=== PATIENT | male | born 1990 | race Caucasian/White ===

== ENCOUNTER 2024-05-31 14:32 | Emergency (ER) | payer SELFPAY ==
[2024-05-31] VITALS (9 sets, daily range): BP systolic 117–145; BP diastolic 66–94; BMI 21.8
[2024-05-31 15:04] LABS: % Basophils 0.5 % (0-2); % Eosinophils 0.3 % (0-6); % Immature Granulocytes 0.1 % (0-0.5); % Lymphocytes 22.5 % (20.5-51.1); % Neutrophils 71.6 % (42.2-75.2); Absolute Lymphocytes 1.7 10^3/uL (1.2-3.4); Absolute Monocytes 0.4 10^3/uL (0.1-0.6); Absolute Neutrophils 5.5 10^3/uL (1.4-6.5); Hematocrit 37.9 % (39.0-52.0); Hemoglobin 13.9 g/dL (13.0-18.0); Mean Corp Hgb Conc. 36.7 g/dL (33.0-37.0); Mean Corpuscular Hgb 30.6 pg (27.0-31.0); Mean Corpuscular Volume 83.5 fL (80.0-94.0); Nucleated Red Blood Cells % 0 % (-); Platelet Count 293 10^3/uL (130-400); Red Blood Cell Count 4.54 10^6/uL (4.70-6.10); Red Cell Dist. Width 11.6 % (11.5-14.5); White Blood Cell Count 7.6 10^3/uL (4.8-10.8)
[2024-05-31 15:18] LABS: ALT (SGPT) 54 U/L (0-50); AST (SGOT) 46 U/L (17-59); Albumin 5.1 g/dl (3.5-5.0); Alkaline Phosphatase 69 U/L (38-126); Blood Urea Nitrogen 14 mg/dl (9-20); Calcium 10.1 mg/dl (8.4-10.2); Carbon Dioxide 28 mmol/L (22-30); Chloride 100 mmol/L (98-107); Estimated Creatinine Clearance > 125 ml/min; Glucose 90 mg/dl (70-99); Potassium 3.9 mmol/L (3.5-5.1); Sodium 139 mmol/L (135-145); Total Bilirubin 0.9 mg/dl (0.2-1.3); Total Protein 7.6 g/dl (6.3-8.2); eGFR > 60.00
--- NOTE | 2024-05-31 16:03 | ED.GENMED ---
History of Present Illness
General
Chief Complaint: Headache
Source: patient and spouse
Exam Limitations: none
Time Seen by Provider: 05/31/24 15:05
Nursing documentation reviewed up to this point in time: agreed with
History of Present Illness
History of Present Illness:
Patient is a 34-year-old male who presents via EMS complaining of bilateral temporal headache. Patient states it started approximately 2 months ago and waxes and wanes but is always there. Patient states that with activity it increases in pain.
Patient states today he felt faint and nauseous and was pale but not diaphoretic. Patient denies any photophobia, visual, speech issues. Patient denies any focality. Patient felt lightheaded and unsteady but no vertigo. Patient was nauseous
without eating. Patient denies any weight change. Patient denies any recent illnesses or injuries. Patient denies fever or chills, nasal congestion, sore throat or cough. Patient was on methadone up until 5 years ago. Patient denies weight
changes. Patient denies any substance use or cigarette smoking. Patient rarely has alcohol. 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 Patient denies using any toxic substances or glues. Patient denies any numbness or
paresthesias.
Past History
Past History
ED Past Medical History: Other (Hepatitis C, drug abuse)
ED Past Surgical History: None
Social History
Drug: Former user (On methadone)
Review of Systems
Review of Systems
All Other Systems: ROS reviewed and negative except as documented in HPI and ROS
Constitutional: Reports no symptoms
EENT: Reports no symptoms
Respiratory: Reports no symptoms
Cardiac: Reports no symptoms
ABD/GI: Reports nausea; Denies abdominal pain, vomiting, diarrhea, constipated or anorexia
: Reports no symptoms
Musculoskeletal: Reports back pain
Skin: Reports no symptoms
Neurological: Reports headache; Denies weakness
Hematologic/Lymphatic: Reports no symptoms
Phy Exam
Physical Exam
Physical Exam:
Physical Exam
General: mild to moderate distress, alert and appropriate, well nourished, well hydrated
HENT: Normocephalic and nontender, supple with no lymphadenopathy, no thyromegaly
Eyes: Clear sclera, conjuctiva without injection
Heart: Regular rhythm and rate. No S3, S4. No murmur. No NVD. Left carotid bruit
Lungs: No respiratory distress, no stridor, lung sounds clear and equal bilaterally, chest wall symmetrical and nontender
Abdomen: Soft, nontender, no organomegaly, no CVA tenderness, BS good
Neuro: Alert and oriented x 3, CN II - XII intact, no motor focality, no cerebellar dysfunction
Skin: no rash
Psychiatric: well kept. interactive and cooperative
Extremities: No edema, cyanosis, tenderness, Good and equal peripheral pulses.
Course
Orders/Labs/Results
Orders:
Orders
05/31/24 14:50
Complete Blood Count/With Diff Urgent
Comprehensive Metabolic Panel Urgent
Erythrocyte Sed Rate Urgent
Comment: ADD ON
Lyme Progressive Urgent
Comment: ADD ON
05/31/24 15:59
CT Head & Neck Angio W/wo IV Urgent
Comment:
Reason For Exam: headache with left carotid bruit
Diphenhydramine [Benadryl] 12.5 mg IV NOW STA
Ketorolac [Toradol] 15 mg IV NOW STA
Prochlorperazine [Compazine] 5 mg IV NOW STA
05/31/24 16:00
Add On- LAB Urgent
Tests Added?: Lyme progressive, ESR
Abnormal Lab Results
05/31/24
14:50
RBC 4.54 L 10^6/uL
(4.70-6.10)
Hct 37.9 L %
(39.0-52.0)
ALT 54 H U/L
(0-50)
Albumin 5.1 H g/dl
(3.5-5.0)
05/31/24 14:50
05/31/24 14:50
Vital Signs
Initial and Last Documented VS:
Initial Vital Signs
Temp Pulse Resp BP Pulse Ox
98.0 F 73 10 145/94 99
05/31/24 14:44 05/31/24 14:44 05/31/24 14:44 05/31/24 14:44 05/31/24 14:44
Last Documented Vital Signs
Temp Pulse Resp BP Pulse Ox
98.0 F 65 16 126/66 98
05/31/24 14:44 05/31/24 18:30 05/31/24 18:30 05/31/24 18:22 05/31/24 18:30
*Radiology
Radiology exam reviewed: radiology read reviewed (Unremarkable no etiology for the left carotid bruit)
*Pulse Oximetry
Patient hypoxic: no
*EKG
Interpreted by ED Provider?: NA
*Dirt Shoveler Interpretation
Rate: Dirt Shoveler- N/A
*Critical Care Note
Total Time (30-74mins, 75-104mins- exclusive of procedures): Not Applicable
Update Note
Update Note:
Patient feeling better at this time. Patient states he actually feels the best when he is able to relax. Discussed the findings with the patient and his . Patient will be referred to neurology. This may be all musculoskeletal in nature.
They have had increased stress in their lives but while that may be a reason I do not feel comfortable making it the only reason. Patient will be started on Toradol and lidocaine patches as well as heat to the area. Patient will be referred to
neurology.
ED Attending Note
-
Portions of this chart may have been created with voice recognition software.� Occasional wrong word or��sound alike� substitutions may have occurred due to the inherent limitations of voice recognition software.
Discharge Plan
Departure
Patient Disposition: Home (Routine Discharge)
Date of Disposition: 05/31/24
Time of Disposition: 19:57
Patient with high blood pressure during this ER visit?: No
Condition: Fair
Covid-19: Not Applicable
Discharge Problem:
Headache
Instructions: Headache, Adult (DC)
Prescriptions:
New
ketorolac 10 mg tablet
10 mg PO QID PRN (Reason: pain) Qty: 20 0RF
lidocaine 5 % adhesive patch,medicated
1 patch topical DAILY Qty: 15 0RF
No Action
methadone 10 MG tablet
63 mg PO DAILY
ondansetron 4 MG tablet,disintegrating
4 mg PO TIDPRN PRN (Reason: Nausea) Qty: 15 0RF
Referrals:
NONE,* [Family Provider] -
Kinjal Nix, DO [Active] - Call in 1-3 days for appt
Interventions
Interventions:
*Risk Screen - Suicide Last Done: 05/31/24 14:46
*General Assessment Last Done: 05/31/24 14:46
*Neglect/Abuse Screening Last Done: 05/31/24 14:46
ED- Fall Risk Assessment Last Done: 05/31/24 14:48
*ED COVID-19 Vaccine History Last Done: 05/31/24 14:46
ED- Neurological Assessment Last Done: 05/31/24 14:48
Discharge Date and Time
Print Language: ALBANIAN
[2024-05-31] MEDS: BENADRYL 12.5 MG IV (16:10)
[2024-05-31] MEDS: COMPAZINE 5 MG IV (16:12)
[2024-05-31] MEDS: TORADOL 15 MG IV (16:13)
[2024-05-31 17:02] LABS: Erythrocyte Sed Rate 9 mm/hour (0-20)
[2024-06-01 15:23] LABS: Lyme Antibody Screen, EIA Negative (Negative)
== END 2024-05-31 20:08 | disposition home or self-care (01) ==
LOC: EMR 14:32
PROVIDERS: EMERGENCY PHYSICIAN Emergency Medicine
DX: R51.9 Headache, unspecified (principal)
CPT/HCPCS: 99284; 96374; 96375; 70496; 70498; 80053; 85025; 85652; 86618; Q9967